=== PATIENT | male | born 1970 | race Caucasian/White ===

== ENCOUNTER → 2017-10-10 | Outpatient (CLI) | payer BC ==
[2017-10-10 19:56] LABS: BASO # 0.1 10^3/uL (0.0-0.2); BASO % 0.9 % (0.0-1.0); EOS # 0.2 10^3/uL (0.0-0.50); EOS % 2.4 % (0.0-3.0); IMMATURE GRANULOCYTE % 0.6 % (0-0); LYMPH # 1.8 10^3/uL (1.5-4.5); MEAN CORPUSCULAR HEMOGLOBIN 35.5 pg (27.0-33.0); MEAN CORPUSCULAR VOLUME 98.5 fl (80.0-96.0); MONO # 0.7 10^3/uL (0.0-0.8); MONO % 9.4 % (0.0-5.0); NEUTROPHILS # 4.2 10^3/uL (1.8-7.7); NEUTROPHILS % 60.7 % (36.0-66.0); PLATELET COUNT, AUTOMATED 292 10^3/uL (150-450); RED CELL DISTRIBUTION WIDTH 11.5 % (11.5-14.5)
[2017-10-10 19:59] LABS: URIC ACID 8.4 MG/DL (3.5-7.2)
== END ==
LOC: M ADAMS 11:46
DX: M10.071 Idiopathic gout, right ankle and foot (principal)
CPT/HCPCS: 84550

== ENCOUNTER → 2017-10-26 | Outpatient (REF) | payer BC ==
[2017-10-26 14:18] LABS: ALBUMIN 3.5 GM/DL (3.2-5.2); ALBUMIN/GLOBULIN RATIO 0.95 (1.00-1.93); ALKALINE PHOSPHATASE 77 U/L (45-117); ALT/SGPT 51 U/L (12-78); ANION GAP 9 MEQ/L (8-16); AST/SGOT 23 U/L (7-37); BILIRUBIN,TOTAL 0.8 MG/DL (0.2-1.0); BLOOD UREA NITROGEN 9 MG/DL (7-18); CARBON DIOXIDE LEVEL 27 MEQ/L (21-32); CHLORIDE LEVEL 106 MEQ/L (98-107); CHOLESTEROL LEVEL 223 MG/DL (<200); CHOLESTEROL RISK RATIO 3.185 (<5); CREATININE FOR GFR 0.96 MG/DL (0.70-1.30); GLOMERULAR FILTRATION RATE > 60.0 (>60); GLUCOSE, FASTING 88 MG/DL (70-105); HDL CHOLESTEROL 70 MG/DL (>40); LDL CHOLESTEROL 117.2 MG/DL (<100); NON-HDL-C 153 MG/DL; POTASSIUM SERUM 4.1 MEQ/L (3.5-5.1); SODIUM LEVEL 142 MEQ/L (136-145); TOTAL PROTEIN 7.2 GM/DL (6.4-8.2); TRIGLYCERIDES LEVEL 179 MG/DL (<150); URIC ACID 7.7 MG/DL (3.5-7.2)
== END ==
LOC: M SFHCADAM 07:51
DX: K22.70 Barrett's esophagus without dysplasia (principal); E66.01 Morbid (severe) obesity due to excess calories; M1A.9XX0 Chronic gout, unspecified, without tophus (tophi)
CPT/HCPCS: 84443

== ENCOUNTER 2017-12-14 08:02 | Day surgery (SDC) | payer BC ==
[2017-12-14] MEDS: NS 1,000 ML IV (09:11)
[2017-12-14] MEDS ORDERED: LIDOCAINE 2% INJ 100 MG/5 ML SDV (FOR ANES.) As Ordered (09:19)
[2017-12-14] MEDS ORDERED: fentaNYL 100 MCG/2 ML INJECTION (J3010) As Ordered (09:19)
[2017-12-14] MEDS ORDERED: PROPOFOL 200 MG/20 ML VIAL As Ordered ×2 (09:19→09:47)
== END 2017-12-14 10:26 | disposition home or self-care (01) ==
LOC: M SDC 10:26
DX: K22.70 Barrett's esophagus without dysplasia (principal); K44.9 Diaphragmatic hernia without obstruction or gangrene; R12 Heartburn; K21.9 Gastro-esophageal reflux disease without esophagitis; I10 Essential (primary) hypertension; M10.9 Gout, unspecified; Z79.899 Other long term (current) drug therapy; F17.220 Nicotine dependence, chewing tobacco, uncomplicated
CPT/HCPCS: 43239

== ENCOUNTER → 2019-06-10 | Outpatient (REF) | payer BC ==
[~2019-06-10] MED LIST: ALLO100T PO; CYCL10TA PO; KETO10TAB PO; LISI10TA4 PO; OMEP40CA97 PO
[2019-06-10 12:55] LABS: BASO # 0.1 10^3/uL (0.0-0.2); BASO % 0.6 % (0.0-1.0); EOS # 0.1 10^3/uL (0.0-0.50); EOS % 1.1 % (0.0-3.0); HEMATOCRIT 48.4 % (42.0-52.0); HEMOGLOBIN 17.5 g/dl (13.5-17.5); LYMPH # 1.6 10^3/uL (1.5-4.5); LYMPH % 19.3 % (24.0-44.0); MEAN CORPUSCULAR HEMOGLOBIN 37.2 pg (27.0-33.0); MEAN CORPUSCULAR HGB CONC 36.2 g/dl (32.0-36.5); MONO # 0.7 10^3/uL (0.0-0.8); MONO % 8.4 % (0.0-5.0); NEUTROPHILS # 5.8 10^3/uL (1.8-7.7); NEUTROPHILS % 70.2 % (36.0-66.0); PLATELET COUNT, AUTOMATED 222 10^3/uL (150-450); WHITE BLOOD COUNT 8.2 10^3/uL (4.0-10.0)
[2019-06-10 13:11] LABS: ALBUMIN 3.7 GM/DL (3.2-5.2); ALT/SGPT 51 U/L (12-78); BILIRUBIN,TOTAL 0.7 MG/DL (0.2-1.0); BLOOD UREA NITROGEN 12 MG/DL (7-18); CALCIUM LEVEL 9.4 MG/DL (8.5-10.1); CARBON DIOXIDE LEVEL 29 MEQ/L (21-32); CHLORIDE LEVEL 104 MEQ/L (98-107); CHOLESTEROL LEVEL 223 MG/DL (<200); CHOLESTEROL RISK RATIO 2.753 (<5); CREATININE FOR GFR 1.05 MG/DL (0.70-1.30); GLOMERULAR FILTRATION RATE > 60.0 (>60); GLUCOSE, FASTING 94 MG/DL (70-100); HDL CHOLESTEROL 81 MG/DL (>40); LDL CHOLESTEROL 112 MG/DL (<100); NON-HDL-C 142 MG/DL; POTASSIUM SERUM 4.2 MEQ/L (3.5-5.1); SODIUM LEVEL 139 MEQ/L (136-145); TOTAL PROTEIN 7.4 GM/DL (6.4-8.2); TRIGLYCERIDES LEVEL 151 MG/DL (<150); URIC ACID 7.2 MG/DL (3.5-7.2)
[2019-06-12 00:06] LABS: ANA (HEP2) Positive (.)
== END ==
LOC: M SFHCADAM 09:29
PROVIDERS: ATTEND Physician Assistant Medical
DX: M1A.9XX0 Chronic gout, unspecified, without tophus (tophi) (principal); M1A.09X1 Idiopathic chronic gout, multiple sites, with tophus (tophi); E66.01 Morbid (severe) obesity due to excess calories; I10 Essential (primary) hypertension

== ENCOUNTER → 2019-06-10 | Outpatient (CLI) | payer BC ==
[~2019-06-10] MED LIST changes: -CYCL10TA PO; -KETO10TAB PO; +OMEP40CA2 PO; -OMEP40CA97 PO
--- NOTE | 2019-06-11 11:59 | REP ---
Clinical: Chronic gout. Technique: AP, lateral, bilateral oblique views of the right and left wrist. Findings: Right wrist: Ovoid lamellated calcified loose body is identified along the radial aspect of the wrist just lateral to the scaphoid and likely related to chronic gout. Subtle sclerosis and irregularity involving the first and second carpometacarpal joints and possibly the third carpometacarpal joint. No acute fracture or dislocation. Left wrist: Left wrist demonstrates a very mild cortical irregularity and joint space narrowing involving the first and second carpometacarpal joints. Remainder examination appears normal. No acute fracture dislocation. Impression: Degenerative changes as noted above. Correlation is recommended. The above mentioned calcified loose body at the right wrist was previously noted on hand x-ray dated 2014, but appears increased in size. Electronically Signed by Miguel Bullock MD 06/11/2019 03:04 A
--- NOTE | 2019-06-11 11:59 | REP ---
Clinical: Pain. Chronic gout. Technique: AP, lateral, bilateral oblique views of the right and left hand. Findings: Right hand: Ovoid calcified lamellated loose body along the lateral/radial aspect of the wrist just lateral to the scaphoid and inferior to the multangular bones is again noted but increased in size when compared to 2015. Cortical irregularity and subtle joint space narrowing involving the distal carpometacarpal joints. The digits appear relatively normal for age and without overt osteoarthritic or inflammatory arthritic changes. Left hand: Cortical irregularity and very subtle joint space narrowing involving the first and second carpometacarpal joints appreciated. The digits appear relatively normal for age and without overt osteoarthritic or inflammatory arthritic changes. 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 Chronic partially calcified loose body in the right lateral wrist. Electronically Signed by Miguel Bullock MD 06/11/2019 03:08 A
== END ==
LOC: M ADAMS 09:42
PROVIDERS: ATTEND Physician Assistant Medical
DX: M1A.9XX0 Chronic gout, unspecified, without tophus (tophi) (principal); M19.041 Primary osteoarthritis, right hand; M19.042 Primary osteoarthritis, left hand

== ENCOUNTER 2019-06-21 11:02 | Emergency (ER) | payer BC ==
[~2019-06-21] VITALS: Ht 167.6 cm; Wt 75.0 kg
[2019-06-21] MEDS ORDERED: KETOROLAC 60 MG/2 ML VIAL (J1885) IM ONE (11:45)
[2019-06-21] MEDS ORDERED: CYCLOBENZAPRINE 10 MG TAB PO ONE (11:45)
[2019-06-21] MEDS ORDERED: ACETAMINOPHEN 325 MG TAB PO ONE (11:45)
--- NOTE | 2019-06-21 12:30 | REP ---
Clinical: Acute Pain . Technique: AP, lateral, bilateral oblique, and coned-down views. Comparison: 04/15/2008 Findings: Alignment and lordosis is maintained. Chronic sacralization of L5 again noted. The vertebral bodies including transverse process and spinous processes are intact and normal. There is no evidence for acute fracture / compression injury or subluxation. No evidence for spondylolysis or spondylolisthesis. No significant degenerative change is noted. Impression: Chronic sacralization of L5 unchanged. No acute lumbosacral spine pathology or trauma/injury. Electronically Signed by Miguel Bullock MD 06/21/2019 12:21 P
[2019-06-21] MEDS ORDERED: KETO10TAB PO (13:51)
[2019-06-21] MEDS ORDERED: CYCL10TA PO (13:51)
[2019-06-21 14:17] VITALS: BP 175/115
== END 2019-06-21 14:20 | disposition home or self-care (01) ==
LOC: M ED 11:02
DX: S39.012A Strain of muscle, fascia and tendon of lower back, initial encounter (principal); X50.9XXA Other and unspecified overexertion or strenuous movements or postures, initial encounter; Y92.9 Unspecified place or not applicable; M54.32 Sciatica, left side; R03.0 Elevated blood-pressure reading, without diagnosis of hypertension; I10 Essential (primary) hypertension; M10.9 Gout, unspecified; Z87.891 Personal history of nicotine dependence; Z79.899 Other long term (current) drug therapy
CPT/HCPCS: 72110; 80047; 96372; 99284; J1885

== ENCOUNTER → 2019-12-17 | Outpatient (REF) | payer BC ==
[~2019-12-17] MED LIST changes: +CYCL10TA PO; +KETO10TAB PO; -OMEP40CA2 PO; +OMEP40CA97 PO
[2019-12-17 17:23] LABS: BASO # 0.1 10^3/uL (0.0-0.2); BASO % 1.1 % (0.0-1.0); EOS # 0.1 10^3/uL (0.0-0.5); EOS % 1.7 % (0.0-3.0); HEMATOCRIT 46.8 % (42.0-52.0); LYMPH # 1.9 10^3/uL (1.5-5.0); LYMPH % 24.1 % (24.0-44.0); MEAN CORPUSCULAR HEMOGLOBIN 35.9 pg (27.0-33.0); MEAN CORPUSCULAR HGB CONC 36.3 g/dl (32.0-36.5); MEAN CORPUSCULAR VOLUME 98.7 fl (80.0-96.0); MONO # 0.7 10^3/uL (0.0-0.8); MONO % 9.1 % (0.0-5.0); NEUTROPHILS # 5.1 10^3/uL (1.5-8.5); NEUTROPHILS % 63.6 % (36.0-66.0); PLATELET COUNT, AUTOMATED 286 10^3/uL (150-450); RED BLOOD COUNT 4.74 10^6/uL (4.30-6.10)
[2019-12-17 17:48] LABS: ALT/SGPT 51 U/L (12-78); BILIRUBIN,TOTAL 0.4 MG/DL (0.2-1.0); BLOOD UREA NITROGEN 13 MG/DL (7-18); C REACTIVE PROTEIN QUANTITATIV < 0.30 MG/DL (0.00-0.30); CALCIUM LEVEL 9.3 MG/DL (8.5-10.1); CARBON DIOXIDE LEVEL 25 MEQ/L (21-32); CHLORIDE LEVEL 104 MEQ/L (98-107); CREATININE FOR GFR 1.11 MG/DL (0.70-1.30); GLOMERULAR FILTRATION RATE > 60.0 (>60); GLUCOSE, FASTING 91 MG/DL (70-100); POTASSIUM SERUM 3.8 MEQ/L (3.5-5.1); RHEUMATOID FACTOR QUANT < 10.0 IU/ML (<15.0); SODIUM LEVEL 137 MEQ/L (136-145); TOTAL PROTEIN 7.9 GM/DL (6.4-8.2); URIC ACID 6.5 MG/DL (3.5-7.2)
[2019-12-17 18:28] LABS: ERYTHROCYTE SEDIMENTATION RATE 3 mm/hr (0-15)
== END ==
LOC: M SFHCRHEU 15:48
PROVIDERS: ATTEND Internal Medicine
DX: M1A.9XX1 Chronic gout, unspecified, with tophus (tophi) (principal); M25.50 Pain in unspecified joint